=== PATIENT | male | born 1980 | race Caucasian/White ===

== ENCOUNTER → 2019-09-25 16:54 | Outpatient (CLI) | payer OTHER, SELFPAY ==
[2014-10-23 15:48] VITALS: BMI 19.5
--- NOTE | 2019-09-25 17:00 | RAD_ITS ---
STUDY: X-RAY - LEFT KNEE REASON FOR EXAM: Male, 39 years old. Pain, no known injury TECHNIQUE: 4 view(s) of the knee. COMPARISON: None. FINDINGS: Normal visualized distal femur. Normal visualized proximal tibia and fibula. Normal proximal tibiofibular articulation. There are minimal degenerative changes with joint space narrowing of the medial knee compartment. Normal lateral femorotibial compartment. Normal patellofemoral articulation. The soft tissue structures are unremarkable. RAD/Knee 4 or More Views IMPRESSION: Minimal degenerative changes with minimal joint space narrowing of the medial knee compartment. Electronically Signed: Kevin Pacheco MD at 23:58 EST , Service support ,
--- NOTE | 2019-09-25 17:00 | RAD_ITS ---
STUDY: X-RAY - RIGHT KNEE REASON FOR EXAM: Male, 39 years old. TECHNIQUE: 4 view(s) of the knee. COMPARISON: None. FINDINGS: Normal visualized distal femur. Normal visualized proximal tibia and fibula. Normal proximal tibiofibular articulation. Normal medial femorotibial compartment. Normal lateral femorotibial compartment. Normal patellofemoral articulation. The soft tissue structures are unremarkable. RAD/Knee 4 or More Views IMPRESSION: Normal x-ray examination of the knee. Electronically Signed: Kevin Pacheco MD at 23:58 EST , Service support ,
== END ==
PROVIDERS: Family Provider Family Medicine; PCP Family Medicine; Referring Provider Family Medicine; Visit Provider Family Medicine
DX: M25.561 Pain in right knee (principal); M25.562 Pain in left knee
CPT/HCPCS: 73564

== ENCOUNTER → 2021-01-07 15:18 | Outpatient (CLI) | payer OTHER, SELFPAY ==
[2014-10-23 15:48] VITALS: BMI 19.5
--- NOTE | 2021-01-07 15:23 | RAD_ITS ---
STUDY: X-RAY - LUMBAR SPINE REASON FOR EXAM: Male, 40 years old. BACK PAIN TECHNIQUE: 5 view(s) of the lumbar spine were obtained. COMPARISON: None FINDINGS: Normal lumbar lordosis. There is no substantial scoliosis. There is a normal alignment of the vertebrae. Normal vertebral bodies and endplates. Normal disc space heights. The soft tissue structures are unremarkable. RAD/L/S Spine Min 4 Views IMPRESSION: Normal x-ray examination of the lumbar spine. Electronically Signed: Tristan Roa DO at 16:12 EDT Tel [phone], Service support ,
== END ==
PROVIDERS: PCP Family Medicine; Referring Provider Family Medicine; Visit Provider Family Medicine
DX: M54.9 Dorsalgia, unspecified (principal)
CPT/HCPCS: 72110

== ENCOUNTER → 2021-01-11 | Outpatient (CLI) | payer OTHER, SELFPAY ==
[2014-10-23 15:48] VITALS: BMI 19.5
--- NOTE | 2021-01-11 | IMM_PTH ---
PATIENT: JAIMEE BORRERO LOC: [facility] U#:[id number] AGE/SX: 40/M ROOM: RE01/11/[address]: Dr. Ernie Puckett MD : 1980 BED: DIS: 01/11/2021 SPEC #: [id number] RECD: 01/13/21 12:58 STATUS: JESUSITA RESegun #: [id number] KYAW: 01/11/21 00:[address]: Ernie Puckett DEPT: IMMUNOHISTOCHEMISTRY RECD BY: Darline Puente Tissues: Skin of leg, NOS Procedures: Pankeratin (add) MELAN-A (add) Vimentin (initial) S-100 (add) PHYSICIAN & INSTITUTION [place] [id number] SPECIMEN INFORMATION: Tissue Source: Left leg biopsy Clinical Info: Neoplasm Specimen Number: [id number] CPT code: 10662, 98919 x3 METHODOLOGY: Deparaffinized sections of prefer/formalin-fixed tissue or PAP/DQ stained slides are incubated with monoclonal/polyclonal antibodies/oligonucleotide probes. Localization is made via biotin free immunoperoxidase method. Appropriate controls are performed and reacted as expected. Results on target cell population are indicated in the following table: RESULTS: ANTIBODY / CLONE RESULT Vimentin (V9) positive S-100 (4C4.9) positive Melan A (A103) positive AE1-3 (AE1/AE3/PCK26) negative These tests were developed and their performance characteristics determined by Laboratory. They may not have been cleared or approved by the U.S. Food and Drug Administration. The FDA has determined that such clearance or approval is not necessary. The above immunohistochemical/dualISH markers are ordered and reviewed by the Pathologist. INTERPRETATION: Left leg, biopsy: Dysplastic compound nevus. AM:jessie 01/19/2021
--- NOTE | 2021-01-11 15:04 | LES_PTH ---
PATIENT: JAIMEE BORRERO LOC: [facility] U#:[id number] AGE/SX: 40/M ROOM: RE01/11/[address]: Dr. Ernie Puckett MD : 1980 BED: DIS: 01/11/2021 SPEC #: [id number] RECD: 01/11/21 17:36 STATUS: JESUSITA BECK #: [id number] KYAW: 01/11/21 15:[address]: Ernie Puckett DEPT: SURGICAL PATHOLOGY RECD BY: Urszula Martin Tissues: Skin of leg, NOS Procedures: Surgery Specimen Level IV HEADER OPERATION: Punch biopsy left leg PRE-OP DIAGNOSIS: Neoplasm TISSUE SUBMITTED: Left leg biopsy MICROSCOPIC DIAGNOSIS Lesion of left leg, punch biopsy: Dysplastic compound nevus. See Comment. AM:jessie 01/19/2021 COMMENT Sections show a dysplastic compound nevus with moderate cytologic atypia that extends to the peripheral margins of the biopsy. Clinical correlation and re-excision is recommended. Immunohistochemistry ([id number]) supports the diagnosis. This case is reviewed in consultation with Dr. Ca of [facility] (complete report viewable in EMR). Case has been reviewed in consultation with Dr. Jackson who concurs with the above diagnosis. IDC:[email or web address] MICROSCOPIC DESCRIPTION Slides are reviewed. GROSS DESCRIPTION Received is one container labeled with the patient's name and not further designated. The specimen consists of a punch biopsy of holliday-white skin measuring 0.4 cm in diameter and 0.2 cm in length. A brownish irregular lesion is noted on the surface measuring 0.4 x 0.3 cm. The entire specimen is submitted in one cassette. It will be bisected at the time of embedding. / ERIKA:jessie 01/12/21 TC:? CPT: 52038
== END | disposition home or self-care (01) ==
LOC: LABSPEC 01-12 09:29
PROVIDERS: PCP Family Medicine; Referring Provider Family Medicine; Visit Provider Family Medicine
DX: D23.72 Other benign neoplasm of skin of left lower limb, including hip (principal)
CPT/HCPCS: 88305; 88341; 88342

== ENCOUNTER → 2021-03-17 15:39 | Outpatient (CLI) | payer OTHER, SELFPAY ==
[2014-10-23 15:48] VITALS: BMI 19.5
--- NOTE | 2021-03-17 | LES_PTH ---
PATIENT: JAIMEE BORRERO LOC: [facility] U#:[id number] AGE/SX: 45/M ROOM: RE03/17/[address]: Dr. Ernie Puckett MD : 1980 BED: DIS: SPEC #: RECD: 03/17/21 14:50 STATUS: JESUSITA GUZMANSegun #: [id number] KYAW: 03/17/21 00:[address]: Ernie Puckett DEPT: SURGICAL PATHOLOGY RECD BY: Evaristo Irving Tissues: Skin of leg, NOS Procedures: Surgery Specimen Level IV HEADER OPERATION: Punch biopsy PRE-OP DIAGNOSIS: Suspicious skin lesion TISSUE SUBMITTED: Left leg neoplasm MICROSCOPIC DIAGNOSIS Skin lesion of left leg, punch biopsy: Cicatrix. Focal hyperkeratosis. Minimal dermal chronic inflammation. No evidence of melanotic neoplasm. See comment. AM:jessie 03/19/2021 COMMENT Immunohistochemistry ([id number]) supports the above diagnosis. Reference is made to the patient?s previous case ([id number]), lesion of left leg, punch biopsy in which dysplastic compound nevus was identified. MICROSCOPIC DESCRIPTION Slides are reviewed. GROSS DESCRIPTION Received in fixative is one container labeled with the patient's name and designated left leg neoplasm. The specimen consists of a light holliday punch biopsy of skin measuring 7 mm in diameter and 0.2 cm in thickness. The specimen is submitted in its entirety in one cassette for post fixation sectioning. / AM:jessie 03/18/21 TC:5 CPT: 24650
--- NOTE | 2021-03-17 | IMM_PTH ---
PATIENT: JAIMEE BORRERO LOC: [facility] U#:[id number] AGE/SX: 45/M ROOM: RE03/17/[address]: Dr. Ernie Puckett MD : 1980 BED: DIS: SPEC #: [id number] RECD: 03/19/21 10:43 STATUS: JESUSITA SOLARES #: [id number] KYAW: 03/17/21 00:[address]: Ernie Puckett DEPT: IMMUNOHISTOCHEMISTRY RECD BY: Darline Puente Tissues: Left leg Procedures: P53 (add) Vimentin (add) Pankeratin (initial) MELAN-A (add) S-100 (add) PHYSICIAN & INSTITUTION [place] [id number] SPECIMEN INFORMATION: Tissue Source: Left leg neoplasm Clinical Info: Skin lesion Specimen Number: CPT code: 39984, 87613 x4 METHODOLOGY: Deparaffinized sections of prefer/formalin-fixed tissue or PAP/DQ stained slides are incubated with monoclonal/polyclonal antibodies/oligonucleotide probes. Localization is made via biotin free immunoperoxidase method. Appropriate controls are performed and reacted as expected. Results on target cell population are indicated in the following table: RESULTS: ANTIBODY / CLONE RESULT AE1-3 (AE1/AE3/PCK26) negative Vimentin (V9) negative Melan A (A103) negative S-100 (4C4.9) negative P53 (DO-7) negative These tests were developed and their performance characteristics determined by [facility]. They may not have been cleared or approved by the U.S. Food and Drug Administration. The FDA has determined that such clearance or approval is not necessary. The above immunohistochemical/dualISH markers are ordered and reviewed by the Pathologist. INTERPRETATION: Skin lesion of left leg, punch biopsy: No evidence of malignancy. AM:jessie 03/22/2021
== END ==
PROVIDERS: PCP Family Medicine; Referring Provider Family Medicine; Visit Provider Family Medicine
DX: D48.7 Neoplasm of uncertain behavior of other specified sites (principal)
CPT/HCPCS: 88305; 88341; 88342

== ENCOUNTER 2021-05-02 13:12 | Emergency (ER) | payer OTHER, SELFPAY ==
[2021-05-02 13:13] VITALS: BP 128/48; PULSE 67; RESP 18; TEMP 35.7; O2SAT 99; BMI 21.5
--- NOTE | 2021-05-02 13:45 | RAD_ITS ---
EXAM: XR CHEST, 1 VIEW CLINICAL INDICATION: Chest pain. TECHNIQUE: Frontal view of the chest. This report was created using Fridge report generation technology. COMPARISON: None. FINDINGS: LUNGS AND PLEURAL SPACES: Unremarkable. No consolidation or edema. No pneumothorax. No effusion. HEART: Unremarkable. Cardiac silhouette not enlarged. MEDIASTINUM: Central airways and mediastinal contour are unremarkable. BONES/JOINTS: Unremarkable. SOFT TISSUES: Unremarkable. RAD/Chest 1 View (Portable) IMPRESSION: Normal chest radiograph. Electronically Signed: Desmond Payne MD at 15:04 EDT , Service support ,
--- NOTE | 2021-05-02 13:45 | EKG12_ITS ---
Test Reason : CP Blood Pressure : / mmHG Vent. Rate : 067 BPM Atrial Rate : 067 BPM P-R Int : 144 ms QRS Dur : 078 ms QT Int : 388 ms P-R-T Axes : 076 050 053 degrees QTc Int : 409 ms Normal sinus rhythm Normal ECG Confirmed by AYDIN JOHNSON, LUKE ([id number]), newspaper managing editor LINETTE MERCADO ([id number]) on 05/04/2021 9:42:24 AM Referred By: BRADLY/MARGOT Confirmed By:LUKE PERRIN MD
[2021-05-02 13:50] VITALS: O2SAT 91
[2021-05-02 13:54] LABS: Absolute Lymphocyte Count 2.93 X10^3/uL (0.83-4.51); Absolute Neutrophil Count 7.4 X10^3/uL (2.0-7.7); Basophil# 0.14 X10^3/uL; Basophil% 1.2 % (0-1); Eosinophil# 0.31 X10^3/uL; Eosinophils% 2.6 % (0-5); Hematocrit 41.4 % (40-54); Hemoglobin 14.4 g/dL (13.0-16.5); Lymphocyte # 2.93 X10^3/ul (0.83-4.51); Lymphocyte % 24.6 % (19-41); Mean Corp Hgb Conc 34.8 g/dL (32-36); Mean Corpuscular Hgb 33.2 pg (27.0-32.0); Mean Corpuscular Volume 95.4 fL (80-94); Mean Platelet Vol. 10.1 fl (6.2-12.0); Monocyte# 1.06 X10^3/uL; Monocyte% 8.9 % (0-10); NRBC Flagged by Analyzer 0 % (0-5); Neutrophil % 62.2 % (47-70); Platelet Count 212 K/mm3 (150-450); RBC Distribution Width CV 13.2 % (11.6-14.6); RBC Distribution Width SD 45.8 fl (35.1-43.9); Red Blood Count 4.34 M/mm3 (4.6-6.2); White Blood Count 11.9 K/mm3 (4.4-11.0)
[2021-05-02 14:12] LABS: Anion Gap 2 (5-15); BUN 17 mg/dL (7-18); Calcium,Total 8.7 mg/dL (8.5-10.1); Chloride 108 mmol/L (98-107); Creatinine, Serum 1.06 mg/dL (0.70-1.30); EST Glomerular Filtration Rate 83 mL/min (>60); Est Glom Filt Rate - Afr Amer 100 mL/min (>60); Estimated Creatinine Clearance 96.39 ml/min; Glucose 88 mg/dL (74-106); Potassium 4.2 mmol/L (3.5-5.1); Sodium Level 137 mmol/L (136-145); Troponin-I HS < 3.0 pg/mL (3.0-78.5)
[2021-05-02 14:22] VITALS: BP 111/82; PULSE 69; RESP 18; O2SAT 100
--- NOTE | 2021-05-02 15:03 | ED.VIS.CHEST ---
HPI History of Present Illness Chief Complaint: Chest Pain Informant: patient Narrative Narrative: Patient is a 40-year-old previously healthy male who presents to the emergency department for substernal chest pain. He states this started around 8 AM this morning. Denies ever having before. He currently rates the pain as a 1 out of 10. Describes as an achy sensation. Movement seem to make it worse. He does feel mildly short of breath with it. He has not been coughing or had any fever/chills. Denies any abdominal pain or back pain. No radiation of the symptoms. No leg swelling or calf pain. No known history of cardiac disease at a young age in the family. He does admit to smoking cigarettes. He has not tried taking thing for this. Initially thought it was secondary to drinking an energy drink this morning although he has had it before in the past. No trauma. PFSH PFSH Home Medications naproxen [Naprosyn] 500 mg PO BID PRN #20 tab 05/02/21 [Rx Last Taken Unknown] Allergy/AdvReac Type Severity Reaction Status Date / Time No Known Allergies Allergy Verified 05/02/21 13:12 Social History Smoking Status: Current every day smoker tobacco type: cigarettes ROS ROS ED Constitutional Constitutional ED: Denies chills or fever(s) Eyes Eyes: Denies change in vision ENT ENT ED: Denies epistaxis or rhinorrhea Cardiovascular Cardiovascular: Reports chest pain; Denies palpitations Respiratory/Chest Respiratory/Chest: Reports dyspnea; Denies cough or dyspnea on exertion Gastrointestinal Gastrointestinal: Denies abdominal pain, diarrhea, nausea or vomiting Musculoskeletal Musculoskeletal: Denies back pain or neck pain Integumentary Denies rash Neurologic Neurologic: Denies dizziness, headache(s) or weakness EXAM Physical Exam Const Vital Signs: 05/02/21 13:13 05/02/21 13:50 05/02/21 14:22 Temperature 96.2 F L Temperature Source Temporal Pulse Rate 67 69 Respiratory Rate 18 18 Blood Pressure 128/48 H 111/82 H Blood Pressure Mean 74 91 Pulse Ox 99 91 100 Oxygen Delivery Method Room Air Room Air Room Air 05/02/21 15:49 Temperature Temperature Source Pulse Rate 74 Respiratory Rate 15 Blood Pressure 129/68 H Blood Pressure Mean Pulse Ox 99 Oxygen Delivery Method Positive well nourished and well developed General Appearance ED: well developed and NAD HEENT Reports normocephalic, head/scalp atraumatic and moist mucous membranes Eyes PERRL and EOMs intact bilaterally Neck supple Chest Wall inspection of chest normal Chest Narrative: Mild tenderness to sternal palpation Resp normal respiratory effort and clear to auscultation bilaterally Auscultation: Negative for rales, rhonchi or wheezes Cardio regular rate, regular rhythm and no murmurs GI normal to inspection, nondistended, normoactive bowel sounds and non-tender Palpation: soft; Negative for guarding or rebound tenderness present Back/Spine no CVA tenderness Extremity normal to inspection General Extremety ED: Negative for edema or tenderness General Extremity: Negative for edema Neuro oriented x3, CN's II-XII intact bilaterally and no sensory deficits noted Sensorium / Orientation: alert Motor Exam: strength 5/5 throughout Psych mental status grossly normal Skin no rashes or lesions noted Heart Score History: Slightly/Non-Suspicious ECG: Normal Age: </= 45 years Risk Factors: 1 or 2 Risk Factors Troponin: </= Normal Limit Score: 1 MDM MDM MDM Narrative Medical decision making narrative: Patient presents the ED for substernal chest pain. On arrival to the ED vital signs within normal limits. No acute distress. He is PERC negative. No risk factors. Only risk factor for ACS of smoking. EKG, chest x-ray basic lab work being obtained. His current symptoms are very minimal. Patient's lab work-up did not reveal any significant acute abnormality. He is not anemic. His troponin is negative. No acute electrolyte disturbance. Chest x-ray is clear. Patient up ambulating around emergency department wanting to be discharged home. At this time feel he is safe for discharge. Patient likely has some costochondritis given the fact he has some repeated lifting and the pain is reproducible on palpation. Recommend symptomatic treatment. Return precautions are reviewed. I have very low concern for ACS, PE, aortic catastrophe. This time he is discharged home in stable condition. He is to follow-up with his PCP. All questions were answered. Lab Data Labs: Laboratory Results - last 24 hr 05/02/21 05/02/21 13:20 13:20 WBC 11.9 H RBC 4.34 L Hgb 14.4 Hct 41.4 MCV 95.4 H MCH 33.2 H MCHC 34.8 RDW Std Deviation 45.8 H RDW Coeff of Harsh 13.2 Plt Count 212 MPV 10.1 Immature Gran % (Auto) 0.500 Neut % (Auto) 62.2 Lymph % (Auto) 24.6 Foster % (Auto) 8.9 Eos % (Auto) 2.6 Baso % (Auto) 1.2 H Absolute Neuts (auto) 7.4 Absolute Lymphs (auto) 2.93 Nucleated RBC % 0 Sodium 137 Potassium 4.2 Chloride 108 H Carbon Dioxide 27.0 Anion Gap 2 L BUN 17 Creatinine 1.06 Estim Creat Clear Calc 96.39 Est GFR (MDRD) Af Amer 100 Est GFR (MDRD) Non-Af 83 BUN/Creatinine Ratio 16.0 Glucose 88 Calcium 8.7 Troponin I High Sens < 3.0 L Radiography Diagnostic Testing: Radiology Impression Chest X-Ray 05/02/21 13:45 IMPRESSION: Normal chest radiograph. Electronically Signed: Desmond Payne MD at 15:04 EDT , Service support , EKG Initial EKG: Attestation: I personally reviewed and interpreted this EKG as follows: (Rate of 67 bpm normal sinus rhythm. Normal intervals. Normal axis. No significant ST elevations or depressions. No T wave abnormalities.) Discharge Plan Triage Chief Complaint: Chest Pain ED Provider: Devonte Olivas Dx/Rx/DC Orders Clinical Impression: Chest wall pain Instructions: ED Chest Pain, Noncardiac Prescriptions: New naproxen [Naprosyn] 500 mg tablet 500 mg PO BID PRN (Reason: pain) Qty: 20 RF: 0 Primary Care Provider: Ernie Puckett Referrals: Ernie Puckett MD [Primary Care Provider] - 3-5 Days if not improving Disposition Disposition: Home, Self Care Discharge Date/Time: 05/02/21 15:50
[2021-05-02 15:49] VITALS: BP 129/68; PULSE 74; RESP 15; O2SAT 99
== END 2021-05-02 15:50 | disposition home or self-care (01) ==
PROVIDERS: Emergency Provider Emergency Medicine; PCP Family Medicine
DX: R07.89 Other chest pain (principal); R06.00 Dyspnea, unspecified; F17.210 Nicotine dependence, cigarettes, uncomplicated
CPT/HCPCS: 71045; 80048; 84484; 85025; 93005; 99284; A4216

== ENCOUNTER → 2021-06-29 | Outpatient (CLI) | payer OTHER, SELFPAY | END | disposition home or self-care (01) | PROVIDERS: PCP Family Medicine; Referring Provider Physician Assistant Surgical; Visit Provider Physician Assistant Surgical | DX: R09.81 Nasal congestion (principal) | CPT/HCPCS: 87635; U0005; U0003 ==

== ENCOUNTER 2021-11-13 13:09 | Emergency (ER) | payer OTHER, SELFPAY ==
[2021-11-13 13:10] VITALS: BP 118/86; PULSE 115; RESP 18; TEMP 36.6; O2SAT 96
--- NOTE | 2021-11-13 13:20 | ED.VIS.DENTA ---
HPI History of Present Illness Chief Complaint: Dental Informant: patient Onset/Context/Timing Onset: Days (5 days) Context: Gradual Onset Current Severity: Mild Maximum Severity: Moderate Narrative Narrative: Patient presents secondary to dental pain. Reports having pain that started on Monday, 5 days ago. Patient states the pain seems to be subsiding now but he feels the infection is getting worse. He has an appointment to see his primary care physician this coming week. He does not have a dentist but states he does have dental insurance. PFSH PFSH Medical History no medical history no medical history Home Medications naproxen [Naprosyn] 500 mg PO BID PRN #20 tab 05/02/21 [Rx Last Taken Unknown] naproxen [Naprosyn] 500 mg PO BID PRN #20 tab 11/13/21 [Rx Last Taken Unknown] penicillin V potassium 500 mg PO 4X/DAY #40 tab 11/13/21 [Rx Last Taken Unknown] Allergy/AdvReac Type Severity Reaction Status Date / Time No Known Allergies Allergy Verified 11/13/21 13:12 Social History Smoking Status: Current every day smoker tobacco type: cigarettes ROS ROS ED Constitutional Constitutional ED: Denies chills or fever(s) Eyes Eyes: Denies change in vision ENT ENT ED: Reports other Details: Left lower dental pain ; Denies sore throat Cardiovascular Cardiovascular: Denies chest pain Respiratory/Chest Respiratory/Chest: Denies cough or dyspnea Gastrointestinal Gastrointestinal: Denies abdominal pain, nausea or vomiting Genitourinary Genitourinary ED: Denies dysuria Musculoskeletal Musculoskeletal: Denies back pain Integumentary Denies rash Neurologic Neurologic: Denies headache(s) or weakness Allergic/Immunologic Allergic/Immunologic ED: Denies urticaria EXAM Physical Exam Const Vital Signs: 11/13/21 13:10 Temperature 97.8 F Temperature Source Temporal Pulse Rate 115 H Respiratory Rate 18 Blood Pressure 118/86 H Blood Pressure Mean 96 Pulse Ox 96 Oxygen Delivery Method Room Air Positive well nourished and well developed General Appearance ED: well developed HEENT HEENT Narrative: Left mandibular third molar ground off to gumline with surrounding edema. No trismus. Normal posterior pharynx. Eyes PERRL and EOMs intact bilaterally Neck no lymphadenopathy and supple Lymph Lymphatic: no lymphadenopathy noted Chest Wall inspection of chest normal and palpation of chest normal Resp normal respiratory effort and clear to auscultation bilaterally Cardio regular rate and regular rhythm GI normal to inspection, nondistended, normoactive bowel sounds and non-tender Palpation: soft Extremity normal to inspection Neuro oriented x3 Sensorium / Orientation: alert Psych mental status grossly normal Skin no rashes or lesions noted MDM MDM MDM Narrative Medical decision making narrative: Patient will be given prescription for Naprosyn and Pen-Vee K. I will give him a dental referral list. I also recommended calling the number on his insurance card to see what dentists are covered in the area. Discharge Plan Triage Chief Complaint: Dental ED Provider: Breanna Hoskins Dx/Rx/DC Orders Clinical Impression: Odontalgia Instructions: ED Dental Abscess Prescriptions: New naproxen [Naprosyn] 500 mg tablet 500 mg PO BID PRN (Reason: pain) Qty: 20 RF: 0 penicillin V potassium 500 mg tablet 500 mg PO 4X/DAY Qty: 40 RF: 0 No Action naproxen [Naprosyn] 500 mg tablet 500 mg PO BID PRN (Reason: pain) Qty: 20 RF: 0 Primary Care Provider: Ernie Puckett Referrals: Ernie Puckett MD [Primary Care Provider] - Keep [facility] appointment Disposition Disposition: Home, Self Care
[2021-11-13] MEDS: Naproxen 500 MG Tablet PO (13:24)
[2021-11-13] MEDS: Penicillin Vk 250 MG Tablet 500 MG PO (13:24)
[2021-11-13 13:37] VITALS: RESP 16
== END 2021-11-13 13:37 | disposition home or self-care (01) ==
LOC: ED 13:34
PROVIDERS: Emergency Provider Emergency Medicine; PCP Family Medicine; Visit Provider Emergency Medicine
DX: K08.89 Other specified disorders of teeth and supporting structures (principal); F17.210 Nicotine dependence, cigarettes, uncomplicated
CPT/HCPCS: 99283

== ENCOUNTER 2022-08-26 12:35 | Outpatient (CLI) | payer OTHER, SELFPAY ==
--- NOTE | 2022-08-26 | LES_PTH ---
PATIENT: JAIMEE BORRERO [facility] U#:[id number] AGE/SX: 42/M ROOM: RE08/26/[address]: Dr. Ernie Puckett MD : 1980 BED: DIS: 08/26/2022 SPEC #: [id number] RECD: 08/26/22 13:57 STATUS: JESUSITA BECK #: [id number] KYAW: 08/26/22 00:[address]: Ernie Puckett DEPT: SURGICAL PATHOLOGY RECD BY: Evaristo Irving Tissues: Skin of face, NOS Procedures: Surgery Specimen Level IV HEADER OPERATION: Skin biopsy PRE-OP DIAGNOSIS: Suspicious skin lesion TISSUE SUBMITTED: Left face, skin suspicious lesion MICROSCOPIC DIAGNOSIS Left face skin lesion, biopsy: Seborrheic keratosis. Negative for malignancy. SJ:jessie 08/29/2022 MICROSCOPIC DESCRIPTION Slides are reviewed. GROSS DESCRIPTION Received in fixative is one container labeled with the patient's name and designated left face lesion. The specimen consists of an irregular piece of holliday-white skin measuring 0.4 x 0.5 x 0.2 cm. The entire specimen is submitted in one cassette. / SJ:rg 08/26/2022 TC:1 CPT: 72942
== END 2022-08-26 23:59 | disposition home or self-care (01) ==
LOC: LABSPEC 12:40
PROVIDERS: PCP Family Medicine; Referring Provider Family Medicine; Visit Provider Family Medicine
DX: L98.9 Disorder of the skin and subcutaneous tissue, unspecified (principal)
CPT/HCPCS: 88305

== ENCOUNTER 2022-09-04 11:30 | Emergency (ER) | payer OTHER, SELFPAY ==
[2022-09-04 11:32] VITALS: BP 147/96; PULSE 113; RESP 17; TEMP 36.6; O2SAT 97; BMI 20.3
--- NOTE | 2022-09-04 11:48 | EDS_ITS ---
HPI <ADRYAN Clifton - Last Filed: 09/04/22 12:59> History of Present Illness Chief Complaint: Dental Narrative Narrative: 42-year-old male states he has extensive dental decay. 3 weeks ago he started having swelling on the left side but a few days ago it switched to the right lower jaw. He is having pain and both lower molars. He just finished 10 days of amoxicillin without improvement. No fever chills or difficulty swallowing or breathing. PFSH <ADRYAN Clifton - Last Filed: 09/04/22 12:59> PFSH Medical History no medical history Home Medications clindamycin HCl 150 mg capsule 300 mg PO 4X/DAY #80 CAPSULES 09/04/22 [Rx Last Taken Unknown] Allergy/AdvReac Type Severity Reaction Status Date / Time No Known Allergies Allergy Verified 09/04/22 11:30 Surgical History no surgical history Social History Smoking Status: Current every day smoker tobacco type: cigarettes ROS <ADRYAN Clifton - Last Filed: 09/04/22 12:59> ROS ED ROS Narrative Constitutional: Negative for fever, chills, malaise. Eyes: Negative for visual change. ENT: Positive for dental pain. CVS: Negative for palpitations, chest pain, syncope. Respiratory: Negative for shortness of breath, cough, orthopnea. GI: Negative for abdominal pain, nausea, vomiting. : Negative for dysuria, hematuria or frequency. Neuro: Negative for headache. Skin: Negative for rash, abscess, or wound. Musc: Negative for joint pain, swelling, trauma. Heme: Negative for easy bruising, bleeding, lymphadenopathy. EXAM <ADRYAN Clifton - Last Filed: 09/04/22 12:59> Physical Exam Narrative Exam Narrative: CONST: Patient sitting in no acute distress. EYES: Normal inspection. ENT: Dental caries throughout, periapical abscess of right lower mandibular gums with associated swelling of the cheek. Sublingual space is soft, no trismus or tongue elevation, airway patent with midline uvula. NECK: Normal inspection. RESP: No respiratory distress, CTAB. CVS: Regular rate and rhythm, no murmur, no gallop. SKIN: Color normal, no rash, warm, dry, intact. EXTREMITIES: Normal appearance, no pedal edema. NEURO: Oriented x4. PSYCH: Normal affect. Const Vital Signs: 09/04/22 11:32 Temperature 97.9 F Temperature Source Temporal Pulse Rate 113 H Respiratory Rate 17 Blood Pressure 147/96 H Blood Pressure Mean 113 Pulse Ox 97 Oxygen Delivery Method Room Air <Dr. Yonatan Monk DO - Last Filed: 09/04/22 13:04> Physical Exam Const Vital Signs: 09/04/22 11:32 Temperature 97.9 F Temperature Source Temporal Pulse Rate 113 H Respiratory Rate 17 Blood Pressure 147/96 H Blood Pressure Mean 113 Pulse Ox 97 Oxygen Delivery Method Room Air MDM <ADRYAN Clifton - Last Filed: 09/04/22 12:59> [facility] Narrative Medical decision making narrative: Patient has extensive dental caries and has a right lower gingival periapical abscess. I used Cetacaine topical anesthetic and an 18-gauge needle to drain it with about 2 cc of purulent material expressed. He will be placed on clindamycin and given a dental referral sheet. He was discharged in stable condition. <Dr. Yonatan Monk DO - Last Filed: 09/04/22 13:04> [facility] Treatment and Re-Evaluation Narrative: I performed a history and physical examination of the patient and discussed management plan with the physician financial services assistant. I reviewed the physician financial services assistant's note and agree with the documented findings and plan of care. Patient presents with. We will abscess of the right lower jaw. He had this drained by the PA. He was previously on amoxicillin will be started on clindamycin. He was given a dental referral sheet. He was advised that the only way this will be better is with the help of dentistry Yonatan Monk DO, MS Discharge Plan Triage Chief Complaint: Dental ED Midlevel Provider: Tori De Oliveira ED Provider: Yonatan Monk Dx/Rx/DC Orders Clinical Impression: Abscess, dental Instructions: Dental Abscess Prescriptions: New clindamycin HCl 150 mg capsule 300 mg PO 4X/DAY Qty: 80 0RF Primary Care Provider: Ernie Puckett Referrals: Ernie Puckett MD [Primary Care Provider] - Activity Restrictions/Additional Instructions: Take the antibiotics and Tylenol ibuprofen for pain and please follow-up with a dentist. Disposition Disposition: Home, Self Care
[2022-09-04] MEDS: Tetracaine/Benzocaine/Butamben 1 APPLIC TOPICAL (12:22)
[2022-09-04] MEDS: Clindamycin HCl 150 MG Capsule 450 MG PO (12:22)
== END 2022-09-04 13:04 | disposition home or self-care (01) ==
PROVIDERS: Emergency Provider Emergency Medicine; PCP Family Medicine; Visit Provider Emergency Medicine
DX: K04.7 Periapical abscess without sinus (principal); F17.210 Nicotine dependence, cigarettes, uncomplicated; K02.9 Dental caries, unspecified
CPT/HCPCS: 10060; 99283

== ENCOUNTER 2024-07-18 10:00 | Emergency (ER) | payer SELFPAY ==
[2024-07-18 10:00] VITALS: BP 109/97; PULSE 73; RESP 14; TEMP 36.8; O2SAT 100; BMI 19.7
--- NOTE | 2024-07-18 10:09 | EX.ED.VIS.UR ---
HPI HPI - URI History of Present Illness Chief Complaint: Cough Informant: patient Onset/Context/Timing Onset: Weeks Context: Gradual Onset Timing: Continuous Current Severity: Mild Maximum Severity: Mild Associated Symptoms Associated Symptoms: Positive for Productive Cough; Negative for Vomiting, Diarrhea, Shortness of Breath, Chest Pain, Nonproductive cough or Hemoptysis Narrative Narrative: 44-year-old male no significant past medical history. Smoker. States he has had 2 weeks of a cough at times productive. Subjective fever and chills. No shortness of breath. No hemoptysis. No chest pain. No vomiting or diarrhea. No wheezing. Prior similar symptoms: Yes Recent Illness/Hospitalization: No ROS ROS ED Constitutional Constitutional ED: Reports chills, fever(s) and subjective Eyes Eyes: Denies blurry vision ENT ENT ED: Denies ear pain Cardiovascular Cardiovascular: Denies chest pain Respiratory/Chest Respiratory/Chest: Reports cough; Denies dyspnea or dyspnea on exertion Gastrointestinal Gastrointestinal: Denies abdominal pain Genitourinary Genitourinary ED: Denies dysuria or hematuria Musculoskeletal Musculoskeletal: Denies arthralgias Integumentary Denies abscess Neurologic Neurologic: Denies headache(s) Endocrine Endocrinology: Denies cold intolerance Hematologic/Lymphatic Hematologic/Lymphatic: Denies easy bleeding Allergic/Immunologic Allergic/Immunologic ED: Denies mouth swelling PFSH PFSH Medical History no medical history no medical history Home Medications ?Medication ?Instructions ?Recorded ?Last Taken ?Type NK 07/18/24 Unknown History Allergy/AdvReac Type Severity Reaction Status Date / Time No Known Allergies Allergy Verified 07/18/24 10:01 Social History Smoking Status: Current every day smoker tobacco type: cigarettes EXAM Physical Exam Narrative Exam Narrative: 44-year-old male vital signs stable afebrile. No acute distress. Sitting upright in bed. Pulse ox on percent on room air. H EENT exam TMs posterior pharynx normal. Moist weeks membranes. Neck nontender no lymphadenopathy. Lungs dry intermittent cough. No rales, rhonchi or wheezing. Equal symmetrical. Heart regular rhythm rate about 70 no murmur. Chest wall ribs nontender. Abdomen soft nontender. Back nontender. Moving all 4 extremities. Nontender no edema. He is awake and alert. No focal motor deficits. Const Vital Signs: 07/18/24 10:00 07/18/24 10:10 Temperature 98.3 F Temperature Source Oral Pulse Rate 73 Respiratory Rate 14 Respiratory Effort Normal Non-Labored Respiratory Depth Normal Respiratory Pattern Normal Blood Pressure 109/97 H Blood Pressure Mean 101 Pulse Ox 100 Oxygen Delivery Method Room Air Positive well nourished and well developed; Negative for obese, cachectic or contractures General Appearance ED: well developed and NAD; Negative for cachectic, contractures, cyanotic, diaphoretic or pallor Nutritional Appearance: Negative for cachectic or obese HEENT Reports moist mucous membranes normocephalic Face and Sinus: Negative for sinus tenderness Throat: posterior oropharynx normal Eyes EOMs intact bilaterally Neck no lymphadenopathy, supple, no meningeal signs and no JVD General: Negative for anterior neck swelling or lymphadenopathy Resp normal respiratory effort and clear to auscultation bilaterally Resp Narrative: Nonproductive dry cough. Auscultation: Negative for rales, rhonchi, wheezes or diminished lung sounds Cardio S1 normal heart sound, S2 normal heart sound and no murmurs Rate: regular rate Rhythm: regular rhythm GI non-tender, non-distended and no masses Inspection: Negative for abdominal distention Auscultation: normoactive bowel sounds Palpation: soft; Negative for tender or guarding Back/Spine no CVA tenderness and normal ROM General Back: Negative for CVA tenderness Cervical Spine: Negative for cervical spine tenderness Thoracic Spine / Upper Back: Negative for thoracic spinal tenderness Lumbar Spine / Lower Back: Negative for lumbar spinal tenderness Sacrum: Negative for tenderness Extremity normal to inspection and full ROM General Extremety ED: Negative for cyanosis, tenderness or other findings General Extremity: Negative for cyanosis or other findings Neuro oriented x3 and CN's II-XII intact bilaterally Sensorium / Orientation: alert, oriented to person, oriented to place and oriented to time; Negative for orientation impaired, lethargic or stuporous Motor Exam: strength 5/5 throughout Psych mental status grossly normal Appearance: Negative for other Attitude: No agitated Mood & Affect: Negative for depressed, anxious or tearful Skin General Skin Exam: Negative for jaundice or pallor Lesions: no lesions Rashes: no rashes Trauma: Negative for abrasion or laceration MDM MDM MDM Narrative Medical decision making narrative: 44-year-old male nonproductive cough for 2 weeks. Exam benign. Pulse ox 100%. Clinically I think it is a viral respiratory infection. We are obtaining a chest x-ray per his request to rule out pneumonia. I explained to them that if this would be COVID he is now had the symptoms 1-1/2 to 2 weeks that would mean in the change our treatment. He is comfortable with no COVID testing. Repeat exam patient doing well at 10:43 PM. We went over his chest x-ray. This to be treated as a viral syndrome. Fluids and rest. Tylenol Motrin. Follow-up if not improving. He does not need any antibiotics at this time. History & Record Review Discussion w/independent historian: Patient Additional record(s) reviewed:: Prior inpatient record, Prior outpatient record and Prior ED visit Radiography Chest X-Ray - ED: 2 View, Read by ED Physician, Heart, Lungs, Mediastinum, Bony Structures, No Acute Disease and Chronic Changes Diagnostic Testing: Chest x-ray, 2 views, AP and lateral, interpreted by myself shows normal cardiac silhouette. Normal lung stoner. No pneumonia. No infiltrate. No effusion. Chronic changes. Discharge Plan Triage Chief Complaint: Cough ED Provider: Shravan Moyer Dx/Rx/DC Orders Clinical Impression: Acute viral bronchitis Instructions: ED Bronchitis, No Antibiotic (Adult) Prescriptions: No Action NK Primary Care Provider: Ernie Puckett Referrals: Ernie Puckett MD [Primary Care Provider] - 10-14 Days if not better Activity Restrictions/Additional Instructions: Long-term absolutely stop smoking it will save you money prevent lung disease, strokes, heart attacks and cancer. This appears to be a virus. No signs of pneumonia on the chest x-ray. You do not need antibiotics. This should progressively improve. Follow-up with your doctor if not improving. Plenty of fluids and rest. Alternate Tylenol Motrin for subjective fever and bodyaches. Print Language: Croatian Disposition Disposition: Home, Self Care
--- NOTE | 2024-07-18 10:20 | RAD_ITS ---
STUDY: X-RAY CHEST REASON FOR EXAM: Male, 44 years old. Two-week history of cough. TECHNIQUE: PA and lateral views of the chest. COMPARISON: Comparison is made with prior study dated May 02, 2021. FINDINGS: Findings suggestive of early left lower lobe infiltrate in the posterior medial segment of the left lower lobe. There is no demonstrated pleural abnormality. Normal size heart. Normal mediastinum and domingo. Normal visualized pulmonary arteries. Normal visualized aortic arch and descending thoracic aorta. Normal visualized thoracic spine. Normal visualized ribs, clavicles, and shoulders. There is no demonstrated abnormality of the visualized soft tissue structures of the upper abdomen. RAD/Chest PA and Lateral IMPRESSION: Early left lower lobe infiltrate. Electronically Signed: Yusuf Groves MD at 10:46 EDT ,
== END 2024-07-18 10:48 | disposition home or self-care (01) ==
PROVIDERS: Emergency Provider Emergency Medicine; PCP Family Medicine; Visit Provider Emergency Medicine
DX: J20.8 Acute bronchitis due to other specified organisms (principal); F17.200 Nicotine dependence, unspecified, uncomplicated
CPT/HCPCS: 71046; 99282

== ENCOUNTER 2024-10-19 13:23 | Emergency (ER) | payer BC, SELFPAY ==
[2024-10-19 13:24] VITALS: BP 120/78; PULSE 75; RESP 16; TEMP 36.6; O2SAT 99; BMI 21.2
--- NOTE | 2024-10-19 13:44 | EX.ED.UPPERE ---
HPI <ADRYAN Clifton - Last Filed: 10/19/24 15:02> History of Present Illness Chief Complaint: Upper Extremity Injury Narrative Narrative: 44-year-old male complains of left arm pain and redness he noticed yesterday. He injured his arm a year ago but he said no recent injury. It hurts with elbow range of motion. He has no weakness or numbness or tingling. No fever or chills. PFSH <ADRYAN Clifton - Last Filed: 10/19/24 15:02> PFSH Medical History no medical history Home Medications ?Medication ?Instructions ?Recorded ?Last Taken ?Type cephalexin 500 mg capsule 500 mg PO Q6 7 days #28 CAPSULES 10/19/24 Unknown Rx Allergy/AdvReac Type Severity Reaction Status Date / Time No Known Allergies Allergy Verified 10/19/24 13:27 Social History Smoking Status: Current every day smoker tobacco type: cigarettes ROS <ADRYAN Clifton - Last Filed: 10/19/24 15:02> ROS ED ROS Narrative Constitutional: Negative for fever, chills, malaise. CVS: Negative for chest pain. Respiratory: Negative for shortness of breath. Skin: Positive for erythema. Negative for abscess, or wound. Musc: Negative for swelling, trauma. EXAM <ADRYAN Clifton Last Filed: 10/19/24 15:02> Physical Exam Narrative Exam Narrative: CONST: Patient sitting in no acute distress. EYES: Normal inspection. NECK: Normal inspection. RESP: No respiratory distress, CTAB. CVS: Regular rate and rhythm, no murmur, no gallop. SKIN: Mild area of erythema left mid anterior forearm and left antecubital area. No induration, no fluctuance or crepitus, no lymphangitic streaking. EXTREMITIES: Normal appearance of both upper extremities, full range of motion, no bony tenderness, normal motor and sensory function in median radial and ulnar distributions, normal sensation, 2+ radial pulses. NEURO: Alert and answering questions appropriately. PSYCH: Normal affect. Const Vital Signs: 10/19/24 13:24 Temperature 97.9 F Temperature Source Oral Pulse Rate 75 Respiratory Rate 16 Blood Pressure 120/78 Blood Pressure Mean 92 Pulse Ox 99 Oxygen Delivery Method Room Air MDM <ADRYAN Clifton - Last Filed: 10/19/24 15:02> [facility] Narrative Medical decision making narrative: Patient presents with atraumatic left arm pain. He has mild redness of the left forearm. He denies injury trauma or any type of puncture wound to the site. He complains of left elbow pain from an injury 1 year ago but has full range of motion and no reproducible bony tenderness. Extremity is neurovascularly intact. I discussed with him that it appears he has developed cellulitis which requires antibiotics. He was given first dose of Keflex, prescription for antibiotics, and advised to take [id number] pain relievers. He was discharged in stable condition <Dr. Al Waters DO - Last Filed: 10/19/24 14:13> [facility] Treatment and Re-Evaluation Narrative: I have personally performed a face to face assessment of the patient and have reviewed the PAM Note. I performed a substantive portion of the visit including all aspects of the following. My becerril findings include: History: Patient presents with left elbow pain that has been present for the past year. Patient states he injured it at work a year ago. Patient states that he developed some redness over his left forearm over the past 24 hours. Patient denies any specific trauma or injury. Patient denies any paresthesias or weakness. Patient denies any discharge or drainage. Exam: Vital signs are stable. Patient is afebrile. Patient is in no acute distress. Skin is warm and dry. There is erythema and warmth over the volar aspect of the left forearm. There is good range of motion of the left wrist and hand. There is somewhat limited range of motion of the left elbow secondary to pain. Radial pulses are equal bilaterally. Sensation was intact to light touch in the radial, median, and ulnar areas. Strength is 5/5 in the radial, median, and ulnar areas. Medical Decision Making: The patient was advised that this is most likely cellulitis. Patient was given a dose of Keflex here. Patient was given a prescription for Keflex. Patient was instructed use ice to the area. Patient was instructed to take ibuprofen as needed for pain. Patient was instructed to follow-up with his primary care physician in 5 to 7 days for further evaluation. Patient understood and was agreeable with the plan. All questions were answered. Discharge Plan Triage Chief Complaint: Upper Extremity Injury ED Midlevel Provider: Tori De Oliveira ED Provider: Al Waters Dx/Rx/DC Orders Clinical Impression: Cellulitis of left forearm Instructions: Cellulitis Dc Prescriptions: New cephalexin 500 mg capsule 500 mg PO Q6 7 Days Qty: 28 0RF Primary Care Provider: Ernie Puckett Referrals: Ernie Puckett MD [Primary Care Provider] - Activity Restrictions/Additional Instructions: I prescribed antibiotics as the redness could be early cellulitis or skin infection. I recommend Tylenol or ibuprofen for pain. If the redness significantly spreads or you develop red streaking or significant swelling or fever please come back for reevaluation. Print Language: Albanian Disposition Disposition: Home, Self Care Discharge Date/Time: 10/19/24 14:13
== END 2024-10-19 14:13 | disposition home or self-care (01) ==
PROVIDERS: Emergency Provider Emergency Medicine; PCP Family Medicine; Visit Provider Emergency Medicine
DX: L03.114 Cellulitis of left upper limb (principal); F17.210 Nicotine dependence, cigarettes, uncomplicated

== ENCOUNTER → 2025-08-21 | Outpatient (CLI) | payer BC, SELFPAY ==
--- NOTE | 2025-08-21 08:30 | LES_PTH ---
PATIENT: JAIMEE BORRERO LOC: [facility] U#:[id number] AGE/SX: 45/M ROOM: RE08/21/[address]: Dr. Ernie Puckett MD : 1980 BED: DIS: 08/21/2025 SPEC #: [id number] RECD: 08/21/25 12:05 STATUS: JESUSITA BECK #: [id number] KYAW: 08/21/25 08:[address]: Ernie Puckett DEPT: SURGICAL PATHOLOGY RECD BY: Jonh Amador Tissues: A - Skin of forearm, NOS Procedures: Surgery Specimen Level IV HEADER OPERATION: Right forearm biopsy PRE-OP DIAGNOSIS: Nevus TISSUE SUBMITTED: A- Right forearm nevus MICROSCOPIC DIAGNOSIS A. Skin, right forearm, biopsy: * Verrucous keratosis MICROSCOPIC DESCRIPTION Slides are reviewed. GROSS DESCRIPTION A. Received in formalin labeled with the patient's name and date of . Designated as R forearm nevus is a 0.8 x 0.7 cm holliday-white verrucoid skin punch, excised to maximum depth of 0.5 cm. The resection margin is inked green. The specimen is trisected and entirely submitted in 1 cassette. PA [id number]
== END | disposition home or self-care (01) ==
PROVIDERS: PCP Family Medicine; Referring Provider Family Medicine; Visit Provider Family Medicine
DX: L57.0 Actinic keratosis (principal)
CPT/HCPCS: 88305